=== PATIENT | male | born 1945 | race Caucasian/White ===

== ENCOUNTER → 2016-11-11 | Outpatient (CLI) | payer OTHER ==
[~2016-11-11] VITALS: Ht 154.9 cm; Wt 103.4 kg
[~2016-11-11] MED LIST: ACCUPRIL PO; ACCUPRIL40 MG PO; ACETAMINOPHEN325 M1 PO; ALLEGRA ALLERGY60 MG PO; AMBIEN 10 MG TA10 MG PO; APAP650 PO; ASA5UEC PO; ASPIRIN EC81 M1 PO; BENICAR HCT 401 EACH PO; BYSTOLIC 5 MG5 M1 PO; BYSTOLIC2.5 MG PO; CARDIZEM CD 18180 M3 PO; CARDIZEM CD180 MG PO; CARISOPRODOL 3350 M1 PO; CARISOPRODOL250 MG PO; CELEBREX 200 M200 M1 PO; COLACE CLEAR50 MG PO; COLACE100 MG PO; DELTA D3400 UNIT PO; EFFIENT10 MG PO; ETODOLAC 400 M400 M1 PO; FIBER LAX625 MG PO; FISH OIL 1,0001 EAC5 PO; FLOVENT HFA10.6 GM IH; GLUCOSAMINE1000 MG PO; LEVITRA5 MG PO; LIVALO1 MG PO; LIVALO4 MG PO; LUNESTA3 MG PO; NITROGLYCERIN12 GM TRANSLING; OMEPRAZOLE 20 M20 M1 PO; PLAVIX 75 MG TA75 MG PO; PRILOSEC 20 MG20 MG PO; QUINU10 PD; REPATHA SY140 MG/1 M SQ; SENNA LAXATIVE1 EACH PO; SOMA250 MG PO; TAZTIA XT180 MG PO; TIAZAC PO; TOPAMAX 25 MG T25 M1 PO; TOPAMAX 25 MG T25 MG PO; TRAMADOL 50 MG50 MG PO; TRAZODONE HCL50 MG PO; VITAMIN D1000 UNI1 PO; VITAMIN D400 UNI1 PO; VITAMIN E1000 UNI2 PO; XANAX 0.5 MG0.5 MG PO; ZANTAC 150MG T150 MG PO; ZYRTEC10 MG PO; [UNRECOGNIZED DRUG - REMARK] PO
--- NOTE | ~2016-11-11 | HPC ---
[facility] [address] [place] [address] PAIN MANAGEMENT CONSULTATION Name: WEST MOY Room #: [facility] [id number] Admission: 11/11/16 Attend Phys: Joaquin Lujan DO Discharge: Date of : 47 Report #: [id number] THIS REPORT FOR: //name// CC: Cory Lujan The patient is a 71-year-old gentleman seen in consultation at the request of Dr. Medrano for assistance with management of pain primarily low back, but it is constant in neck as well. The patient notes he has had pain, constant for many years. He sees Dr. Medrano for myofascial pain concerns and chronic axial pain. He tells me he has chronic neck pain that radiates into his shoulders, does not have pain radiating to the arms. While he states it is fairly constant, he tells me his biggest concern is what appears to be neurogenic claudication. States if he walks greater than 2 blocks he has a heavy numb feeling in his legs with increasing pain. States his hips feel like they are "on fire." He has cramping in his legs and feet at night. Has subjective weakness of the legs, paresthesia in the bilateral thighs. Fortunately, he denies bowel or bladder continence changes or saddle anesthesia. He notes pain again is exacerbated with standing, driving or sitting. Gets some relief with medication and stretching. He has had trigger point injections (SI joint?) injections with Dr. Medrano. He had seen chiropractors in the past with some efficacy, though has not seen a chiropractor since April. Describes continuous, burning, aching, throbbing pain, rates it anywhere from 4-5 on a VAS. REVIEW OF SYSTEMS: Complete review of systems was attached to chart and gone over with the patient. He is , quit smoking 10 years ago. Does not drink alcohol to excess. Significant heart disease, status post endovascular stents in 1995, 1999, 2007 and 2011. Did have coronary bypass graft surgery in 2007. Hypertension for which he takes quinapril, diltiazem and Bystolic. Gastroesophageal reflux for which he takes omeprazole. Dyslipidemia for which he uses Repatha. Chronic anxiety and depression for which he uses trazodone and Xanax. Takes Celebrex for axial and myofascial pain. He assures me that his bag checker is aware that he is on this agent. He does not use a blood thinner. He has been retired for 6 years. 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 Pain impact score averages 31/70. PHYSICAL EXAMINATION: VITAL SIGNS: Reveals 6 feet 1 inch, 228 pounds gentleman, BMI is 30.1 [place] [address] PAIN MANAGEMENT CONSULTATION Name: FARZANEHWEST MAHAD Room #: REG ANIBAL Marquez#: [id number] Admission: 11/11/16 Attend Phys: Joaquin Lujan DO Discharge: Date of : 47 Report #: [id number] per meter squared. Blood pressure 159/80, pulse is 52, respirations are 20. Room air oxygen saturation 98%. NEUROLOGIC: Cranial nerves 2-12 are grossly intact. HEENT: Pupils equal, reactive to light and accommodation. Extraocular muscles are intact. Thyroid is unremarkable. Cervical range of motion is modestly limited, he is tender in the cervical facets. Upper extremity strength is symmetric. Deep tendon reflexes are preserved. There are no cervical radicular symptoms noted. HEART: Sounds are distant, but regular, I do not detect a murmur. LUNG: Sounds similarly are distant, but clear. ABDOMEN: Endomorphic build with a moderate pannus. EXTREMITIES: Rises from chair using armrests, mildly antalgic gait, positive straight leg raise bilaterally, right greater than left. Diffuse tenderness across the low back. No discrete trigger points are noted. Pain seems to be centered about L5 area. Patellar reflex is diminished compared to the left. Achilles reflexes are symmetric. Slight decreased right plantar flexion and lower extremity extension strength. Skin integument is otherwise intact. Reviewed both cervical and lumbar MRI studies from 10/19/2016. Cervical spine notes degenerative disk and cervical spondylotic changes. There is some stenosis at C4-C5 with a disk bulging about 0.2 cm, flattening the anterior thecal sac without mass effect on the cervical cord, however. There is some cervical spondylosis noted. Again, none of this corresponds with cervical radicular symptoms, I think he does have a component of cervical spondylosis. MRI of the lumbar spine does show more degenerative findings, L3-L4 notes a 3 mm anterolisthesis, facet and ligamentous hypertrophy, all conspiring to narrow the canal to about 6 mm. There is bilateral foraminal stenosis noted. L4-L5 shows stenosis down to about 7-8 mm. There was a small focal disk protrusion at this level. There is left neural foraminal stenosis. L5-S1 notes 2 mm anterolisthesis with ligamentum flavum hypertrophy, again canal was narrowed to 7 mm with bilateral neural foraminal stenosis. ASSESSMENT: Symptomatic lumbar radiculopathy by clinical exam and history, component of cervical spondylosis which patient states is minor compared to his lumbar radicular symptoms. Chronic pain syndrome requiring complex medication management, significant coronary artery disease. RECOMMENDATION: I have discussed with the patient today about therapeutic options. We have elected to address the neurogenic claudication component first, we have elected to move forward with an epidural injection under fluoroscopy at L5-S1. Continue Celebrex, range of motion and activity. Follow up in 3-4 weeks to reevaluate. Consider repeat injection if indicated clinically. Thank you for allowing me to participate in the patient's care. I will keep you abreast of his progress. [address] [address] PAIN MANAGEMENT CONSULTATION Name: WEST MOY Room #: REG ANIBAL Marquez#: [id number] Admission: 11/11/16 Attend Phys: Joaquin Lujan DO Discharge: Date of : 47 Report #: [id number] PROCEDURE NOTE: Lumbar epidural injection under fluoroscopy. DESCRIPTION OF PROCEDURE: After both written and informed consent to include risk of spinal cord damage, increased pain, weakness and dural puncture, the patient was taken to the fluoroscopy suite, placed in the prone position. After sterile prep and drape, a skin wheal with lidocaine was raised. A 22-gauge epidural Tuohy needle was inserted in the midline at L5-S1 with good loss to resistance. Negative aspiration for cerebrospinal fluid or blood was noted. Then 1 mL of Omnipaque under biplanar fluoroscopy showed good spread within the epidural space. This was followed with 80 mg of triamcinolone plus 1 mL of 1.5% preservative-free Xylocaine, 0.5 mL Xylocaine was then injected to flush the needle; it was removed. The patient was monitored for an appropriate period of time and discharged in good and stable condition. <ELECTRONICALLY SIGNED> By: Joaquin Lujan DO 11/14/16 1427 1214 1414 Joaquin Lujan DO /nt
[2016-11-11 09:40] VITALS: BP 159/80
== END | disposition home or self-care (01) ==
LOC: PAIN 07:38
DX: M54.16 Radiculopathy, lumbar region (principal); G89.4 Chronic pain syndrome; M47.892 Other spondylosis, cervical region; I25.10 Atherosclerotic heart disease of native coronary artery without angina pectoris; F11.20 Opioid dependence, uncomplicated; I10 Essential (primary) hypertension; K21.9 Gastro-esophageal reflux disease without esophagitis; E78.5 Hyperlipidemia, unspecified; F41.8 Other specified anxiety disorders; F32.89 Other specified depressive episodes; Z95.1 Presence of aortocoronary bypass graft; Z88.8 Allergy status to other drugs, medicaments and biological substances; Z79.899 Other long term (current) drug therapy; Z79.82 Long term (current) use of aspirin; Z91.040 Latex allergy status; Z98.890 Other specified postprocedural states

== ENCOUNTER → 2016-12-22 | Outpatient (CLI) | payer OTHER ==
--- NOTE | ~2016-12-22 | HPC ---
[facility] [address] [place] [address] PAIN MANAGEMENT CONSULTATION Name: FARZANEHWESTNE Room #: REG CLClayton Murdock.#: [id number] Admission: 12/22/16 Attend Phys: Joaquin Lujan DO Discharge: Date of : 47 Report #: [id number] THIS REPORT FOR: //name// CC: Cory Lujan The patient is a 71-year-old gentleman, prior seen in the pain clinic in consultation on 11/11/2016. We recommended epidural injection at that time. He presents to pain clinic today for ongoing low back and left leg pain. Taking Celebrex daily, Tylenol as needed for breakthrough pain. He still has a markedly antalgic gait with a limited flexion to about 45 degrees. Still noting what sounds like neurogenic claudication symptoms with activity. He had a single lumbar epidural injection on , he notes that following the injection he has had about 50% overall improvement. His functional status has doubled, prior he states he could walk about two blocks before legs became quite "heavy." Now is he is able to walk about four blocks. ASSESSMENT: Symptomatic lumbar radiculopathy with neurogenic claudication component with approximately 60% overall improvement following single epidural injection. RECOMMENDATION: Repeat epidural injection under fluoroscopy today. Continue Celebrex, p.r.n. Tylenol. Follow up in 4 weeks for reevaluation. PROCEDURE: Lumbar epidural injection under fluoroscopy. PROCEDURE NOTE: After both written and informed consent to include risk of spinal cord damage, increased pain, weakness and dural puncture, the patient was taken to the fluoroscopy suite, placed in the prone position. After sterile prep and drape, a skin wheal with lidocaine was raised. A 22-gauge epidural Tuohy needle was inserted in the midline at L5-S1 with good loss to resistance. Negative aspiration for cerebrospinal fluid or blood was noted. Then 1 mL of Omnipaque under biplanar fluoroscopy showed good spread within the epidural space. This was followed with 80 mg of triamcinolone plus 1 mL of 1.5% preservative-free Xylocaine, 0.5 mL Xylocaine was then injected to flush the needle; it was removed. The patient was monitored for an appropriate period of time and discharged in good and stable condition. <ELECTRONICALLY SIGNED> By: Joaquin Lujan DO 12/23/16 0705 1213 1619 Joaquin Lujan DO /nt
== END | disposition home or self-care (01) ==
LOC: PAIN 07:00
DX: M54.16 Radiculopathy, lumbar region (principal); Z98.890 Other specified postprocedural states; Z88.0 Allergy status to penicillin; Z91.040 Latex allergy status; Z88.1 Allergy status to other antibiotic agents; Z88.6 Allergy status to analgesic agent; Z79.82 Long term (current) use of aspirin; Z88.8 Allergy status to other drugs, medicaments and biological substances; Z79.899 Other long term (current) drug therapy

== ENCOUNTER → 2017-01-27 | Outpatient (CLI) | payer OTHER ==
[~2017-01-27] VITALS: Ht 185.4 cm; Wt 97.1 kg
[~2017-01-27] MED LIST changes: +ALEVE220 MG PO
--- NOTE | ~2017-01-27 | HPC ---
[facility] [address] [address] PAIN MANAGEMENT CONSULTATION Name: FARZANEHWEST CLINTONNE Room #: REG [facility] [id number] Admission: 01/27/17 Attend Phys: Joaquin Lujan DO Discharge: Date of : 47 Report #: [id number] THIS REPORT FOR: //name// CC: Cory Lujan The patient is a 72-year-old gentleman, prior seen in the pain clinic on 12/22/2016. His component of neurogenic claudication with lumbar radicular pain exacerbated with standing, walking and bending. He has had 2 epidural injections, 11/11/2016 and 12/22/2016. Returns to pain clinic today. We had a prolonged visit today. Discussed therapeutic options with the patient. He notes he has significant neurogenic claudication, he can stand and walk maybe 5-10 minutes at a max before pain becomes quite disabling. He can sit and rest for 5-10 minutes and somewhat recess. He states his legs are reasonably strong, he can climb stairs, but pain is the primary rate-limiting factor. He has had some intermittent bowel and bladder continence changes. PHYSICAL EXAMINATION: Shows 72-year-old gentleman, BMI is 28.2 kilograms per meter squared. Alert and oriented to person, place, and time, judged to be a reasonable historian. Vital signs are generally stable. Markedly antalgic gait and recently he has been developing a little bit of ataxia. Lumbar flexion is limited to 70 degrees. He can stand on his toes and heels. Straight leg raise is grossly positive, left greater than right at 30 degrees. Patellar reflexes diminished on the left 0-1/4 without symmetric contraction, is 2/4 on the right. Achilles reflexes are 0-1/4 and symmetric. DIAGNOSTIC STUDIES: Include MRI of the lumbar spine from 10/19/2016 noting stenosis down about 6 mm at L3-L4, 7-8 mm at L4-L5, 7 mm at L5-S1 with grade 2 anterolisthesis at this level. The patient is not desirous of surgical intervention. We would like to continue to treat conservatively. We talked about therapeutic options. I would like for him to at least consult with the back surgeon to find out what his options are, though I too agree that probably surgery is not indicated at this point. I think he would benefit from a spinal cord stimulator to help mitigate neurogenic claudication symptoms. Today, we did discuss spinal cord stimulator at length. We also talked about surgery. We used a plastic model spine to discuss his specific anatomy. The patient was seen for approximately 20 minutes today in clinic before taken to the fluoroscopy suite. ASSESSMENT: Symptomatic lumbar radiculopathy secondary to spinal stenosis, history of neurogenic claudication, chronic pain syndrome. [address] [address] PAIN MANAGEMENT CONSULTATION Name: WEST MOY Room #: REG CLClayton Marquez#: [id number] Admission: 01/27/17 Attend Phys: Joaquin Lujan DO Discharge: Date of : 47 Report #: [id number] RECOMMENDATIONS: 1. The patient was given print and video literature regarding spinal cord stimulator (Nevro). 2. Referral to neurosurgery for consultation regarding more definitive intervention, Dr. Brennon Xiao or Dr. Lucio Ferrera. 3. Epidural injection under fluoroscopy today at L5-S1. PROCEDURE: Lumbar epidural injection under fluoroscopy. PROCEDURE NOTE: After both written and informed consent to include risk of spinal cord damage, increased pain, weakness and dural puncture, the patient was taken to the fluoroscopy suite, placed in the prone position. After sterile prep and drape, a skin wheal with lidocaine was raised. A 22-gauge epidural Tuohy needle was inserted in the midline at L5-S1 with good loss to resistance. Negative aspiration for cerebrospinal fluid or blood was noted. Then 1 mL of Omnipaque under biplanar fluoroscopy showed good spread within the epidural space. This was followed with 80 mg of triamcinolone plus 1 mL of 1.5% preservative-free Xylocaine, 0.5 mL Xylocaine was then injected to flush the needle; it was removed. The patient was monitored for an appropriate period of time and discharged in good and stable condition. <ELECTRONICALLY SIGNED> By: Joaquin Lujan DO 01/30/17 0742 1227 1933 Joaquin Lujan DO /nt
[2017-01-27 10:20] VITALS: BP 141/75
== END ==
LOC: PAIN 06:55
DX: M54.16 Radiculopathy, lumbar region (principal); G89.29 Other chronic pain; Z88.1 Allergy status to other antibiotic agents; Z88.8 Allergy status to other drugs, medicaments and biological substances

== ENCOUNTER → 2017-12-06 | Outpatient (CLI) | payer OTHER ==
[~2017-12-06] VITALS: Ht 185.4 cm; Wt 97.5 kg
[~2017-12-06] MED LIST changes: +MOBIC15 MG PO; +TYLENOL EXTRA500 MG PO; +ZYRTEC10 M5 PO
--- NOTE | ~2017-12-06 | HPC ---
[facility] [place] [address] PAIN MANAGEMENT CONSULTATION Name: WEST MOY Room #: REG [facility] Jimmy#: [id number] Admission: 12/06/17 Attend Phys: Enriqueta Tan MD Discharge: Date of : 47 Report #: [id number] THIS REPORT FOR: //name// CC: Cory Tan DATE OF SERVICE: 12/06/2017 CHIEF COMPLAINT: Pain in the low back area and down into the hips and wraps around into the groin and down into the legs. There is still numbness in the front of my thighs. FOLLOWUP HISTORY: The patient is a 72-year-old gentleman who has been followed in the pain clinic by Dr. Joaquin Lujan. The patient has a history of lumbar radicular pain. He has undergone epidural steroid injections in the past. He was found that these are quite helpful. At this juncture, he is experiencing pain, which he rates as a 5-6/10. He has a history of spinal stenosis and degenerative joint disease. He had surgery in April, who is having pain in the back of his legs. Continues to have some pain and discomfort in the right posterior hip area. Notes that the pain has worsened in the low back area in the area of his belt line. Feels that there is a popping sensation in the left hip. He has been walking with a limp. He notes that if he stands for a prolonged period of time he notes that his leg goes numb. The patient is limited in his ability to lean forward more than about 45 degrees for significant pain is noted. The patient had talked with Dr. Lujan regarding the possibility of using a spinal cord stimulator. He is returned today and would like to proceed with an epidural steroid injection. He is clean, greater than 50% improvement in the past when he has undergone injections. ALLERGIES: CODEINE, LATEX, PLAVIX, MYCIN AND TATINS. CURRENT MEDICATIONS: Aleve 220 mg q. 12 hours, Ada 60 mg, trazodone 50 mg at bedtime, omeprazole 20 mg b.i.d., Repatha 140 mg subcutaneous, Bystolic 5 mg, Colace 50 mg at bedtime 2 tablets, Accupril 40 mg, aspirin 325 mg, tramadol 50 mg q.4 hours p.r.n., alprazolam 0.5 mg for anxiety, Taztia XT 180 mg. PAST MEDICAL HISTORY: Bleeding tendencies, hypertension, joint disease/arthritis, stomach problems, colon problem, heart trouble and sleep apnea PAST SURGICAL HISTORY: Two stents in 2011, stents in 1995, stents in 1999, stents in 2007 and open heart surgery in 2007. 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 REVIEW OF SYSTEMS: Fatigue, weakness, wears glasses, ringing in the ears, [facility] [address] [place] [address] PAIN MANAGEMENT CONSULTATION Name: WEST MOY [facility] [id number] Admission: 12/06/17 Attend Phys: Enriqueta Tan MD Discharge: Date of : 47 Report #: [id number] chronic sinus problems, shortness of breath, heart trouble, chest pain, angina or palpitations, sleep apnea, abdominal pain, frequent urination, burning, painful urination, awakens to urinate rash, itching, varicose veins, recurrent headaches, numbness and tingling sensation, memory loss, nervousness, depression, insomnia, hot and cold intolerance and bleeding. LABORATORY DATA: MRI of the lumbar spine dated on 10/19/2016: 1. L3-L4 disk space narrowing and endplate changes seen. There is a 3 mm anterolisthesis of L3. Facet and ligamentum hypertrophy is present. There is a diffuse bulging annulus. The thecal sac measures 6 mm AP diameter. There is a mild bilateral foraminal stenosis. L4-L5 facet and ligamentum hypertrophy is seen. There is diffuse annular bulging. There is a small focal central disk protrusion. The thecal sac measures 7-8 mm AP, right neural foramen is patent. There is mild left foraminal stenosis. 2. L5-S1, there is a 2 mm anterolisthesis of L4-L5. Facet and ligamentum hypertrophy is seen. There is a small focal central disk protrusion. The thecal sac measures 7 mm AP. There is a mild bilateral foraminal stenosis. PAIN CLINIC ASSESSMENT: 1. History of osteoarthritis. The patient has some osteoarthritic changes in the number of places (all over). 2. Height 6 feet 1 inch, weight 215 pounds and BMI is 28.4. 3. Vital signs: Blood pressure 152/88, pulse 59, respiratory rate 16 and room air saturation 98%. 4. Pain intensity 5-6/10. 5. Fall risk. The patient has not fallen in the last 3 months. Does experience some dizziness. 6. Blood thinner. The patient is not on a blood thinning medication. 7. Hypertension. The patient is being treated for hypertension. 8. Opioid medications greater than 6 weeks. The patient is not receiving opioid medications. 9. Risk assessment tool. 10. Functional assessment tool. 11. Recreational drug use. The patient denies use of recreational drugs. 12. Tobacco: The patient is a former smoker. 13. Alcohol: The patient denies use of alcoholic beverages. PHYSICAL EXAMINATION: GENERAL: The patient is a well-developed, well-nourished white male. Appears his stated age. He is alert and oriented x 3. HEENT: Normocephalic, atraumatic. Extraocular muscles intact. Sclerae nonicteric. Mucous membranes are moist. NECK: Good range of motion. HEART: Regular rate. EXTREMITIES: Upper extremity muscle strength is judged to be 4+/5 for the major muscle groups. The patient without significant scoliosis, kyphosis or lordosis. [address] [address] PAIN MANAGEMENT CONSULTATION Name: WEST MOY Room #: REG [facility]#: [id number] Admission: 12/06/17 Attend Phys: Enriqueta Tan MD Discharge: Date of : 47 Report #: [id number] Has pain and discomfort in the lower portion of his back with pain is radiating down at the L4-L5 dermatomal distribution on the right. IMPRESSION: 1. Lumbar radiculopathy, low back area. L4-L5 distribution with history of left foraminal stenosis, 7-8 mm AP diameter. RECOMMENDATIONS: We discussed treatment options with the patient. Risks and benefits of the procedure were discussed. Possible complications of an injection were reviewed. They include but are not limited to infection, increased muscle soreness, headache, bleeding, worsening of pain, no improvement in pain. The patient elects to proceed. PROCEDURE NOTE: The patient was placed in the prone position. Fluoroscopy was used to identify the L4-L5 interspace. A left paracentral area was identified. A 17-gauge Tuohy with loss of resistance technique was used to gain access to the epidural space. There was no CSF, heme or paresthesia. Total of 80 mg Depo-Medrol, 40 mg triamcinolone and 2 mL of 0.25% bupivacaine was injected. The patient tolerated the procedure well. There were no complications. He remained in the pain clinic for an appropriate amount of time. He will follow up in the future as needed. We would like to thank you for letting us participate in his care. We hope he continues to improve. By: 1821 0305 Enriqueta Tan MD /nt
[2017-12-06 09:14] VITALS: BP 152/88
== END | disposition home or self-care (01) ==
LOC: PAIN 07:31
DX: M54.16 Radiculopathy, lumbar region (principal); M48.061 Spinal stenosis, lumbar region without neurogenic claudication; G89.29 Other chronic pain; I10 Essential (primary) hypertension; M19.90 Unspecified osteoarthritis, unspecified site; G47.33 Obstructive sleep apnea (adult) (pediatric); K92.9 Disease of digestive system, unspecified; Z87.891 Personal history of nicotine dependence; Z91.040 Latex allergy status; Z88.6 Allergy status to analgesic agent; Z88.8 Allergy status to other drugs, medicaments and biological substances; Z79.899 Other long term (current) drug therapy; Z79.82 Long term (current) use of aspirin; Z98.890 Other specified postprocedural states; Z95.5 Presence of coronary angioplasty implant and graft

== ENCOUNTER → 2019-06-06 | Outpatient (CLI) | payer OTHER ==
[~2019-06-06] MED LIST changes: +AUGMENTIN 875-1 EACH PO; +BYSTOLIC10 MG PO
== END ==
LOC: SJCVCIMAG 11:30
DX: I44.0 Atrioventricular block, first degree (principal); R94.31 Abnormal electrocardiogram [ECG] [EKG]; I25.10 Atherosclerotic heart disease of native coronary artery without angina pectoris; I10 Essential (primary) hypertension; E78.5 Hyperlipidemia, unspecified; I73.9 Peripheral vascular disease, unspecified; Z87.891 Personal history of nicotine dependence

== ENCOUNTER 2019-07-03 18:04 | Inpatient (IN) | payer OTHER ==
[~2019-07-03] VITALS: Ht 177.8 cm; Wt 102.5 kg
[~2019-07-03 18:04] MED LIST changes: -AUGMENTIN 875-1 EACH PO; -BYSTOLIC10 MG PO
[2019-07-03 18:14] VITALS: BP 180/70
[2019-07-03 18:37] LABS: ABSOLUTE NEUTROPHILS 7.7 thou/uL (1.4-8.2); BASOPHILS 0.5 % (0.0-2.0); EOSINOPHILS 0.4 % (0.0-3.0); HEMATOCRIT 45.8 % (42.0-52.0); HEMOGLOBIN 15.1 gm/dL (14.0-18.0); LYMPHOCYTES 7.5 % (24.0-44.0); MCH 28.8 pg (26.0-34.0); MCHC 32.9 g/dL (28.0-37.0); MCV 87.5 fL (80.0-100.0); MONOCYTES 7.7 % (1.0-8.0); PLATELET COUNT 180 thou/uL (150-400); POLYS 83.9 % (36.0-66.0); RBC 5.24 mil/uL (4.50-6.00); RDW 15.2 % (10.5-14.5); WBC 9.2 thou/uL (4.0-11.0)
[2019-07-03 18:45] LABS: ANION GAP 10 mmol/L (7-16); BUN 15 mg/dL (7-18); CALCIUM 9.7 mg/dL (8.5-10.1); CHLORIDE 101 mmol/L (98-107); CO2 26 mmol/L (21-32); CREATININE 1.1 mg/dL (0.7-1.3); GLUCOSE 122 mg/dL (74-106); POTASSIUM 3.7 mmol/L (3.5-5.1); SODIUM 137 mmol/L (136-145)
[2019-07-03 18:56] LABS: DIRECT BILIRUBIN 0.2 mg/dL (<0.1-0.2); LIPASE 96 U/L (73-393); SGOT 14 U/L (15-37); SGPT 13 U/L (30-65); TOTAL BILIRUBIN 1.2 mg/dL (<0.1-1.0); TOTAL PROTEIN 7.3 g/dL (6.4-8.2); TROPONIN-I <0.06 ng/mL (<0.06)
[2019-07-03] MEDS ORDERED: TRAZODONE HCL50 MG PO (19:43)
[2019-07-03 23:11] VITALS: BP 163/68
[2019-07-03 23:40] VITALS: BP 167/85
[2019-07-04 00:15] VITALS: BP 166/84
[2019-07-04] MEDS ORDERED: BYSTOLIC10 MG PO (00:40)
[2019-07-04 04:58] VITALS: BP 104/55
[2019-07-04 07:30] VITALS: BP 125/53; BP 159/75
--- NOTE | 2019-07-04 07:54 | EKG ---
[facility] [address] [address] [place] [address] ELECTROCARDIOGRAM REPORT Name: WEST MOY Room #: 207-P ADM IN M.R.#: [id number] Admission: 07/03/19 Attend Phys: Chino Thomas MD Discharge: Date of : 47 Report #: [id number] THIS REPORT FOR: cc: Cory Medrano MD, Mark S. MD Lundgren, Craig H. MD [facility] ~ THIS REPORT FOR: //name// [facility] ED Test Date: 2019-07-03 Test Time: 18:00:45 Pat Name: WEST MOY Department: Room: [facility] Gender: M Director Of Religious Life: [facility] : 1945 Requested By: Lalito Rivers Order Number: [id number] MD: John Trinidad Measurements Intervals [place] Rate: 57 P: -8 [place]: 230 QRS: 19 QRSD: 94 T: 114 QT: 598 QTc: 583 Interpretive Statements Sinus rhythm Prolonged [place] interval RSR' in V1 or V2, right VCD Nonspecific ST and T wave abnormality Prolonged QT interval Compared to ECG 04/24/2015 11:56:22 Nonspecific change in the ST and T wave segments Electronically Signed On 07-04-2019 7:53:39 CDT by John Trinidad [email or web address] <ELECTRONICALLY SIGNED> By: John Trinidad MD, FACC 07/04/19 0753 1800 1800 John Trinidad MD, FAC /EPI
--- NOTE | 2019-07-04 07:55 | EKG ---
[facility] [place] [address] [place] [address] ELECTROCARDIOGRAM REPORT Name: WEST MOY Room #: 207- ADM IN M.R.#: [id number] Admission: 07/03/19 Attend Phys: Chino Thomas MD Discharge: Date of : 47 Report #: [id number] THIS REPORT FOR: cc: Cory Medrano MD, Mark S. MD Lundgren, Craig H. MD [facility] ~ THIS REPORT FOR: //name// [facility] ED Test Date: 2019-07-03 Test Time: 18:55:19 Pat Name: WEST MOY Department: Room: [facility] Gender: M Rouge Presser: MASTER : 1945 Requested By: Lalito Rivers Order Number: [id number] MD: John Trinidad Measurements Intervals [place] Rate: 59 P: -4 [place]: 221 QRS: 13 QRSD: 98 T: 141 QT: 402 QTc: 399 Interpretive Statements Sinus bradycardia Prolonged [place] interval Nonspecific ST and T wave abnormality Compared to ECG 04/24/2015 11:56:22 No significant change was found Electronically Signed On 07-04-2019 7:54:35 CDT by John Trinidad [email or web address] <ELECTRONICALLY SIGNED> By: John Trinidad MD, FAC 07/04/19 0754 1855 1855 John Trinidad MD, [facility] /EPI
--- NOTE | 2019-07-04 10:08 | 2DMMODE ---
[facility] [place] [address] 2 D/M-MODE ECHOCARDIOGRAM Name: WEST MOY Room #: 207-P ADM IN M.R.#: [id number] Admission: 07/03/19 Attend Phys: Chino Thomas MD Discharge: Date of : 49 Report #: [id number] THIS REPORT FOR: cc: Cory Medrano MD, Mark S. MD Mancuso, Gerald M. MD [facility] ~ APPROVED REPORT Study performed: 07/04/2019 09:27:57 EXAM: Comprehensive 2D, Doppler, and color-flow Echocardiogram Patient Location: Echo lab Room #: 207 Status: routine BSA: 2.18 HR: 59 bpm BP: 104/55 mmHg Rhythm: NSR Other Information Study Quality: Good Indications Chest Pain Hx: CABG, stent, HTN. 2D Dimensions RVDd: 35.75 mm IVSd: 13.61 (7-11mm) LVOT Diam: 21.53 (18-24mm) LVDd: 49.58 mm PWd: 11.75 (7-11mm) Ascending Ao: 35.97 (22-36mm) LVDs: 33.54 (25-40mm) Aortic Root: 31.74 mm Volumes Left Atrial Volume (Systole) Single Plane 4CH: 89.50 mL Single Plane 2CH: 113.66 mL LA ESV Index: 50.00 mL/m2 Aortic Valve AoV Peak Ignacio.: 2.18 m/s AO Peak Gr.: 19.02 mmHg LVOT Max P.59 mmHg AO Mean Gr.: 9.35 mmHg AO V2 Mean: 1.44 m/s LVOT Max V: 1.70 m/s [facility] [address] [address] 2 D/M-MODE ECHOCARDIOGRAM Name: WEST MOY Room #: 207-P [facility].#: [id number] Admission: 07/03/19 Attend Phys: Marivel Zavala Discharge: Date of : 49 Report #: [id number] AO V2 VTI: 45.81 cm ALONDRA Vmax: 2.84 cm2 Mitral Valve E/A Ratio: 0.9 MV Decel. Time: 179.93 ms MV E Max Ignacio.: 0.99 m/s MV A Ignacio.: 1.13 m/s MV PHT: 52.18 ms IVRT: 69.20 ms Pulmonary Valve PV Peak Ignacio.: 1.47 m/s PV Peak Gr.: 8.70 mmHg Pulmonary Vein P Vein S: 0.88 m/s P Vein A: 0.27 m/s P Vein D: 0.96 m/s P Vein A Dur.: 189.2 msec P Vein S/D Ratio: 0.92 Tricuspid Valve TR Peak Ignacio.: 2.92 m/s RAP Estimate: 5.00 mmHg TR Peak Gr.: 34.09 mmHg PA Pressure: 39.00 mmHg Left Ventricle The left ventricle is normal size. There is normal LV segmental wall motion. Mild concentric left ventricular hypertrophy. Left ventricular systolic function is normal. LVEF is 65%. Mild diastolic dysfunction is present (impaired relaxation pattern). Right Ventricle The right ventricle is normal size. The right ventricular systolic function is normal. Atria Left atrium is moderately dilated. The right atrium size is normal. Aortic Valve The aortic valve is normal in structure. Mildly thickened leaflets. No aortic regurgitation is present. There is no aortic valvular stenosis. Mitral Valve The mitral valve is normal in structure. Mild mitral regurgitation. No evidence of mitral valve stenosis. [facility] [address] [place] [address] 2 D/M-MODE ECHOCARDIOGRAM Name: WEST MOY Room #: 207-P [facility] IN ..#: [id number] Admission: 07/03/19 Attend Phys: Marivel Zavala Discharge: Date of : 49 Report #: [id number] Tricuspid Valve The tricuspid valve is normal in structure. Mild tricuspid regurgitation. Estimated PAP is 40mmHg. Pulmonic Valve The pulmonary valve is normal in structure. Trace pulmonic regurgitation. Great Vessels The aortic root is normal in size. The ascending aorta is normal in size. IVC is normal in size and collapses >50% with inspiration. Pericardium There is no pericardial effusion. <Conclusion> The left ventricle is normal size. Mild concentric left ventricular hypertrophy. LVEF is 65%. Mild diastolic dysfunction is present (impaired relaxation pattern). The right ventricle is normal size. Left atrium is moderately dilated. The aortic valve is normal in structure. Mildly thickened leaflets. Mild mitral regurgitation. Mild tricuspid regurgitation. Estimated PAP is 40mmHg. The aortic root is normal in size. There is no pericardial effusion. <ELECTRONICALLY SIGNED> By: Александр Estes MD, FACC 07/04/19 1006 1006 1006 Александр Estes MD, FACC /INF
[2019-07-04 11:30] VITALS: BP 156/74
[2019-07-04 16:30] VITALS: BP 157/67
--- NOTE | 2019-07-04 22:12 | P ---
[facility] [place] [address] PROCEDURE REPORT Name: WEST MOY Room #: 207-P ADM IN M.R.#: [id number] Admission: 07/03/19 Attend Phys: Chino Thomas MD Discharge: Date of : 49 Report #: [id number] THIS REPORT FOR: cc: Cory Medrano MD, Mark S. MD Graessle, Donna M. DO ~ CC: Chino Medrano MD DATE OF SERVICE: 07/04/2019 PROCEDURE: Esophagogastroduodenoscopy with biopsies. He is a patient of Dr. Cory Medrano and Dr. Chino Thomas. INDICATION FOR PROCEDURE: The patient has had chest pain, nausea, and vomiting of undetermined etiology. This pain that he has had has radiated around into his back. He has epigastric tenderness and some right upper quadrant tenderness as well. His daughter had a cholecystectomy. Informed consent for this procedure was obtained prior to the administration of any medication. The risks of the procedure which include bleeding, perforation, infection, complications of sedation, and the possibility I could miss something have been explained to the patient and he has indicated his consent by signing. Anesthesia kindly provided deep sedation for this procedure. DESCRIPTION OF PROCEDURE: With the patient in the left lateral decubitus position, the Olympus upper videoscope was introduced through the upper esophageal sphincter and advanced under direct visualization to the third portion of the duodenum. Findings are noted on withdrawal of the scope. The duodenal mucosa appears normal throughout its entirety. Pylorus, normal mucosa. Antrum, erythematous mucosa. Biopsies were obtained times 2, once from the antrum and once from the body of the stomach and then times 2 from patches of gastritis in the proximal stomach. The body of the stomach contains patchy gastritis as does the cardia and fundus. Four biopsies total were obtained from the stomach. Good hemostasis was noted after all of those biopsies. The scope was then withdrawn into the esophagus and no hiatal hernia had been seen. The Z line is appropriately located at the top of the gastric folds and appears normal. The esophageal mucosa appears normal throughout its entirety. The scope was withdrawn. The patient went to the recovery area in stable condition. He tolerated the procedure well. [address] [address] PROCEDURE REPORT Name: WEST MOY Room #: 207-P [facility] IN M.R.#: [id number] Admission: 07/03/19 Attend Phys: Chino Thomas MD Discharge: Date of : 49 Report #: [id number] IMPRESSION: 1. Patchy gastritis, biopsy times 4. 2. Normal duodenum and esophagus. RECOMMENDATIONS: To increase his proton pump inhibitors to Protonix 40 mg p.o. b.i.d. Await the biopsy results. We will start him on a heart healthy diet. He will be n.p.o. after midnight for a gallbladder ultrasound in the morning. Thank you very much once again for allowing me to participate in his care. <ELECTRONICALLY SIGNED> By: Yamila Bradford DO 07/04/19 2212 1335 1403 Yamila Bradford DO /nt
[2019-07-05 04:45] VITALS: BP 146/75
[2019-07-05 08:02] VITALS: BP 177/73
[2019-07-05 11:44] VITALS: BP 141/68
[2019-07-05 15:17] LABS: URINE BILIRUBIN NEGATIVE (Negative); URINE BLOOD NEGATIVE (Negative); URINE CLARITY CLEAR; URINE COLOR YELLOW; URINE GLUCOSE-RANDOM* NEGATIVE (Negative); URINE KETONES TRACE (Negative); URINE LEUKOCYTES-REFLEX NEGATIVE (Negative); URINE NITRITE-REFLEX NEGATIVE (Negative); URINE PROTEIN (DIPSTICK) TRACE (Negative)
--- NOTE | 2019-07-05 16:07 | PATH ---
[facility] [address] [place] [address] PATHOLOGY RPT PROCEDURE Name: FARZANEHCALDERON CLINTONNE Room #: 207-P ADM IN M.R.#: [id number] Admission: 07/03/19 Date of : 49 Discharge: Report #: [id number] Path Case #: [id number] [facility] Accession Number: [id number] . 01 Material submitted: . stomach - RANDOM GASTRIC BIOPSY R/O H. PYLORI . 01 Clinical history: . Pre-op diagnosis: Abdominal pain; N/V; non-cardiac chest pain Post-op diagnosis: Gastritis R/O H. pylori . 02 Diagnosis: Gastric mucosa, random gastric, rule out H. pylori, endoscopic biopsy: - Mild reactive gastropathy. - Negative for intestinal metaplasia or atrophy. - Negative for Helicobacter pylori (properly controlled immunohistochemical stain performed. (IUV:pit 07/05/2019) QTP 07/05/2019 1318 Local . 02 Electronically signed: . Lis Irby MD, Pathologist NPI- [id number] . 01 Gross description: . The specimen is received in formalin, labeled "Calderon Carrington, random gastric biopsy to R/O H. pylori". Received are four segments of pale gold soft tissue ranging in size from 0.3 to 0.7 cm in maximum dimensions. The specimen is submitted entirely in cassette A1. (CAA; 07/04/2019) QAC/QAC 07/04/2019 1950 Local . 02 Pathologist provided ICD-10: K31.9 . 02 CPT . 437134, X56369 Specimen Comment: A courtesy copy of this report has been sent to [phone] Specimen Comment: Report sent to Performed at: [address] [id number] [facility] [address], [place] [id number] MD Bj Dukes MD Phone: [phone] Performed at: [address] [id number] [address] [address] PATHOLOGY RPT PROCEDURE Name: CALDERON CARRINGTON Room #: 207-P ADM IN M.R.#: [id number] Admission: 07/03/19 Date of : 49 Discharge: Report #: [id number] Path Case #: [id number] MD Lis Irby MD Phone: [phone]
[2019-07-05 18:59] VITALS: BP 155/71
[2019-07-06] VITALS (7 sets, daily range): BP systolic 115–180; BP diastolic 62–89
[2019-07-06 13:10] LABS: ABSOLUTE NEUTROPHILS 7.9 thou/uL (1.4-8.2); BASOPHILS 0.4 % (0.0-2.0); EOSINOPHILS 0.1 % (0.0-3.0); HEMATOCRIT 42.3 % (42.0-52.0); LYMPHOCYTES 2.7 % (24.0-44.0); MCHC 33.2 g/dL (28.0-37.0); MCV 87.4 fL (80.0-100.0); MONOCYTES 5.9 % (1.0-8.0); PLATELET COUNT 153 thou/uL (150-400); POLYS 90.9 % (36.0-66.0); RBC 4.84 mil/uL (4.50-6.00); RDW 15.2 % (10.5-14.5); WBC 8.7 thou/uL (4.0-11.0)
[2019-07-06 13:24] LABS: ALBUMIN 2.6 g/dL (3.4-5.0); CALCIUM 8.8 mg/dL (8.5-10.1); PHOSPHORUS 1.8 mg/dL (2.5-4.9); POTASSIUM 3.8 mmol/L (3.5-5.1); TOTAL BILIRUBIN 1.4 mg/dL (<0.1-1.0); TOTAL PROTEIN 6.3 g/dL (6.4-8.2)
[2019-07-07 04:02] LABS: BASOPHILS 0.1 % (0.0-2.0); HEMATOCRIT 40.8 % (42.0-52.0); HEMOGLOBIN 13.5 gm/dL (14.0-18.0); MCV 87.9 fL (80.0-100.0); MONOCYTES 6.5 % (1.0-8.0); PLATELET COUNT 167 thou/uL (150-400); POLYS 89.4 % (36.0-66.0); RBC 4.65 mil/uL (4.50-6.00); RDW 15.3 % (10.5-14.5); WBC 7.8 thou/uL (4.0-11.0)
[2019-07-07 04:22] LABS: ALBUMIN 2.4 g/dL (3.4-5.0); CALCIUM 8.1 mg/dL (8.5-10.1); CREATININE 0.9 mg/dL (0.7-1.3); MAGNESIUM 2.2 mg/dL (1.8-2.4); PHOSPHORUS 3.1 mg/dL (2.5-4.9)
[2019-07-07 04:45] VITALS: BP 136/78
[2019-07-07 07:45] VITALS: BP 133/67
[2019-07-07 17:00] VITALS: BP 143/74
[2019-07-07 20:00] VITALS: BP 155/64
[2019-07-08 04:57] LABS: ABSOLUTE NEUTROPHILS 5.2 thou/uL (1.4-8.2); BASOPHILS 0.2 % (0.0-2.0); EOSINOPHILS 0.1 % (0.0-3.0); HEMATOCRIT 36.3 % (42.0-52.0); HEMOGLOBIN 11.9 gm/dL (14.0-18.0); LYMPHOCYTES 9.6 % (24.0-44.0); MCH 28.9 pg (26.0-34.0); MCHC 32.8 g/dL (28.0-37.0); MONOCYTES 8.6 % (1.0-8.0); PLATELET COUNT 170 thou/uL (150-400); POLYS 81.5 % (36.0-66.0); RBC 4.13 mil/uL (4.50-6.00); RDW 15.5 % (10.5-14.5); WBC 6.4 thou/uL (4.0-11.0)
[2019-07-08 05:11] VITALS: BP 139/52
[2019-07-08 05:11] LABS: CALCIUM 8.5 mg/dL (8.5-10.1); MAGNESIUM 2.1 mg/dL (1.8-2.4); PHOSPHORUS 2.5 mg/dL (2.5-4.9); POTASSIUM 3.7 mmol/L (3.5-5.1); TOTAL BILIRUBIN 0.6 mg/dL (<0.1-1.0); TOTAL PROTEIN 5.4 g/dL (6.4-8.2)
[2019-07-08 08:00] VITALS: BP 140/60
[2019-07-08] MEDS ORDERED: TRAMADOL 50 MG50 MG PO (08:59)
[2019-07-08] MEDS ORDERED: AUGMENTIN 875-1 EACH PO (08:59)
[2019-07-08 14:06] VITALS: BP 140/60
--- NOTE | 2019-07-10 16:07 | PATH ---
[facility] [address] [place] [address] PATHOLOGY RPT PROCEDURE Name: CALDERON MOY Room #: 207-P [facility] IN M.R.#: [id number] Admission: 07/03/19 Date of : 49 Discharge: 07/08/19 Report #: [id number] Path Case #: [id number] [facility] Accession Number: [id number] . 01 Material submitted: . gallbladder - GALLBLADDER . 01 Clinical history: . Gangrenous cholecystitis . 02 Diagnosis: Gallbladder, cholecystectomy: - Marked acute cholecystitis associated with ulceration and gangrenous necrosis. (IUV/db; 07/10/2019) LBQ 07/10/2019 1258 Local . 02 Electronically signed: . Lis Irby MD, Pathologist NPI- [id number] . 01 Gross description: . The specimen is received in formalin, labeled "Calderon Charissa, gallbladder". Received is a previously opened gallbladder measuring 8.8 x 5.0 x 1.7 cm in greatest dimensions displaying a dusky rich-brown serosal surface. Opening the specimen reveals a light gold to light brown, shaggy mucosa with a gallbladder wall thickness of 0.1 cm. The gull bladder mucosa displays overlying possible exudate. Calculi are not present, and no masses or lesions are noted grossly. Movie Writer sections, to include the proximal margin, are submitted in cassette A1. (CAA; 07/09/2019) QAC/QA 07/09/2019 1523 Local . 02 Pathologist provided ICD-10: K81.1, K82.8 . 02 CPT . 210203 Specimen Comment: A courtesy copy of this report has been sent to [phone] Specimen Comment: Report sent to Performed at: [address] [id number] MD Bj Dukes MD Phone: [phone] Performed at: [address] [id number] [address] [address] PATHOLOGY RPT PROCEDURE Name: CALDERON MOY Room #: 207-P DIS IN M.R.#: [id number] Admission: 07/03/19 Date of : 49 Discharge: 07/08/19 Report #: [id number] Path Case #: [id number] MD Lis Irby MD Phone: [phone]
== END 2019-07-08 16:07 | disposition home or self-care (01) | DRG 356 ==
LOC: ER 18:04 → EROBS 22:16 → 2N 22:16
PROVIDERS: Emergency Medicine; Internal Medicine; ADMIT Hospitalist
PROC: 0DB68ZX Excision of Stomach, Via Natural or Artificial Opening Endoscopic, Diagnostic (ICD-10-PCS; principal; 2019-07-04)
PROC: 5A09357 Assistance with Respiratory Ventilation, Less than 24 Consecutive Hours, Continuous Positive Airway Pressure (ICD-10-PCS; principal; 2019-07-04)
PROC: 5A09357 Assistance with Respiratory Ventilation, Less than 24 Consecutive Hours, Continuous Positive Airway Pressure (ICD-10-PCS; 2019-07-05)
PROC: 0FT44ZZ Resection of Gallbladder, Percutaneous Endoscopic Approach (ICD-10-PCS; 2019-07-06)
PROC: BF13YZZ Fluoroscopy of Gallbladder and Bile Ducts using Other Contrast (ICD-10-PCS; 2019-07-06)
PROC: 5A09357 Assistance with Respiratory Ventilation, Less than 24 Consecutive Hours, Continuous Positive Airway Pressure (ICD-10-PCS; 2019-07-07)
PROC: 5A09357 Assistance with Respiratory Ventilation, Less than 24 Consecutive Hours, Continuous Positive Airway Pressure (ICD-10-PCS; 2019-07-08)
DX: K29.70 Gastritis, unspecified, without bleeding (principal); K75.0 Abscess of liver; K81.0 Acute cholecystitis; K21.9 Gastro-esophageal reflux disease without esophagitis; I48.0 Paroxysmal atrial fibrillation; G47.33 Obstructive sleep apnea (adult) (pediatric); G43.909 Migraine, unspecified, not intractable, without status migrainosus; I25.10 Atherosclerotic heart disease of native coronary artery without angina pectoris; I73.9 Peripheral vascular disease, unspecified; I71.4 Abdominal aortic aneurysm, without rupture; G47.00 Insomnia, unspecified; R29.6 Repeated falls; K81.1 Chronic cholecystitis; N28.9 Disorder of kidney and ureter, unspecified; Z95.5 Presence of coronary angioplasty implant and graft; Z88.8 Allergy status to other drugs, medicaments and biological substances; Z88.1 Allergy status to other antibiotic agents; Z91.040 Latex allergy status; Z87.891 Personal history of nicotine dependence; Z79.82 Long term (current) use of aspirin; Z79.899 Other long term (current) drug therapy; Z80.0 Family history of malignant neoplasm of digestive organs; Z95.1 Presence of aortocoronary bypass graft; Z86.010 Personal history of colon polyps
CPT/HCPCS: 10081; 50010; 50101; 50249; 50331; 50411; 50445; 50555; 50558; 50900; 51489; 52266; 52287; 53307; 53310; 53312; 54022; 54118; 56462; 56525; 56526; 62110; 62900; 70005

== ENCOUNTER → 2019-08-19 | Outpatient (CLI) | payer OTHER ==
[~2019-08-19] MED LIST changes: +AUGMENTIN 875-1 EACH PO; +BYSTOLIC10 MG PO
== END ==
LOC: SJCVCIMAG 07:51
DX: I72.3 Aneurysm of iliac artery (principal); I44.0 Atrioventricular block, first degree; R94.31 Abnormal electrocardiogram [ECG] [EKG]; I25.10 Atherosclerotic heart disease of native coronary artery without angina pectoris; I10 Essential (primary) hypertension; E78.00 Pure hypercholesterolemia, unspecified; R00.1 Bradycardia, unspecified; I48.0 Paroxysmal atrial fibrillation; Z79.82 Long term (current) use of aspirin; Z79.899 Other long term (current) drug therapy; Z87.891 Personal history of nicotine dependence

== ENCOUNTER → 2020-01-15 | Outpatient (CLI) | payer OTHER | LOC: SJCVCIMAG 08:39 | PROVIDERS: ATTEND Internal Medicine Cardiovascular Disease | DX: I71.4 Abdominal aortic aneurysm, without rupture (principal); R94.31 Abnormal electrocardiogram [ECG] [EKG]; R00.1 Bradycardia, unspecified; I25.10 Atherosclerotic heart disease of native coronary artery without angina pectoris; I10 Essential (primary) hypertension; E78.00 Pure hypercholesterolemia, unspecified; I73.9 Peripheral vascular disease, unspecified; I48.0 Paroxysmal atrial fibrillation; I77.1 Stricture of artery; Z78.9 Other specified health status; Z95.1 Presence of aortocoronary bypass graft; Z87.891 Personal history of nicotine dependence ==

== ENCOUNTER → 2020-02-03 | Outpatient (CLI) | payer OTHER ==
[~2020-02-03] VITALS: Ht 185.4 cm; Wt 100.1 kg
[~2020-02-03] MED LIST changes: +NEURONTIN300 MG PO
[2020-02-03 13:37] VITALS: BP 153/76
--- NOTE | 2020-02-03 14:04 | NUR ---
Pain Clinic Assessment: 1. History of Osteoarthritis: SPINE History of Rheumatoid Arthritis: DENIES 2. Height: 6 ft. 1 in. 185.4 cm. Weight: 220.6 lb. oz. 100.064 kg. Patient's BMI: 29.1 3. Vital Signs: BP: 153/76 Pulse: 49 Resp: 16 Temp: 02 Sat: 98 ECG Mon: 4. Pain Intensity: 4-5 5. Fall Risk: Dizziness: Y Needs help standing or walking: N Fallen in the last 3 months: N Fall risk comments: 6. Patient on Blood Thinner: None 7. History of Hypertension: Y 8. Opioid Therapy greater than 6 weeks: N Opiate Contract Signed: 9. Risk Assessment Tool Provided: 10. Functional Assessment Tool: 11. Recreational Drug Use: Never Drug Type: Tobacco Use: Former Smoker Tobacco Type: Amount or Packs/day: How Many Years: Alcohol Use: No Frequency: Quant:
--- NOTE | 2020-02-17 09:11 | HPC ---
[facility] [address] [place] [address] PAIN MANAGEMENT CONSULTATION Name: WEST MOY Room #: REG [facility].#: [id number] Admission: 02/03/20 Attend Phys: Kenji Juarez MD Discharge: Date of : 49 Report #: [id number] CC: Александр Estes MD Cory Mitchell Juarez DATE OF SERVICE: 02/03/2020 CHIEF COMPLAINT: Back pain with radiation. HISTORY OF PRESENT ILLNESS: The patient is a pleasant 75-year-old who Dr. Estes was asked to see in consultation. He has a longstanding history of back pain and a remarkable history of cardiac disease, which has been managed masterfully by Dr. Estes. He has had 5 separate bypasses and reports that he has had 12 stents. He is doing well at this time from a cardiac standpoint and sees Dr. Estes on a regular basis. It is his back pain that is giving him trouble. He has pain of a 4-5/10 that he describes as a deep aching sensation in his back and it radiates into his legs. He had surgery in 2019 and I have a plain film x-ray following that surgery, but nothing since. He cannot remember who performed the surgery, although the x-rays were ordered by Dr. Tacho Viramontes at . He had a surgery at [facility], which narrows at either Dr. Saha or perhaps Dr. Rubio. Neither name, seems to ring a wright to him. He was better after surgery for a short time, but then the pain began to return. He was sent to see Dr. Whitten, who gave him 2 epidurals and then said there was nothing further that he could do. Since then, he has been taking 2 Tylenol in the morning with the Celebrex and 2 Tylenol at bedtime. He also takes gabapentin 300 mg at bedtime, but cannot take it during the day due to dizziness and it affects him. He has tried hydrocodone and tramadol, but has a very sensitive GI system and has lots of constipation issue, so he has not taken stronger pain medicines. Pain today is worse on the left than the right and this seems to be consistent. The x-rays I reviewed are plain films, again the data does show that he had an anterolisthesis of L3 on L4 and a subtle anterolisthesis of L4 on L5. Facet changes are noted throughout the lower lumbar spine consistent with age. MEDICATIONS: Gabapentin 300 mg at bedtime, Tylenol Extra Strength 2 in the morning, 1 at bedtime; ___ 10 mg daily, trazodone 50 mg at bedtime, omeprazole, docusate, quinapril, aspirin, diltiazem. He also uses sildenafil and remains sexually active. ADDITIONAL SOCIAL HISTORY: Negative for tobacco, although he used to smoke in the past. It has been often a decade or more, he does not use alcohol. He is retired. PHYSICAL EXAMINATION: GENERAL: Pleasant gentleman, 6 feet 1 inch. BMI is 21.9. VITAL SIGNS: Blood pressure 153/76, heart rate 49 on the beta winnie. Pain intensity 4-5. He moves independently from sitting to standing position, but his gait is antalgic. CHEST: Clear. CARDIAC: Rhythm is very slow. I could not hear a murmur. MUSCULOSKELETAL: Straight leg raising bilaterally is positive, reproducing some pain radiating into the legs down the L5-S1 distribution. Sensation is intact. Generalized weakness is noted in the lower extremities. IMPRESSION: This gentleman probably has age-related spinal stenosis. He has been treated in the past with epidural injections due to neurogenic claudication symptoms. I think it is reasonable to repeat those injections again. I reviewed farther back and I see that he has had injections by Dr. Joaquin Lujan in 2017. They were performed at L5-S1 and he has no recollection of success or failure. I think that we could inject him there, perhaps higher. It will depend upon his surgical scar. We will provide medicine into the epidural space. He is anxious to go forward. In order to provide best relief, I think an MRI scan at this point following surgery would be of interest. I have ordered an MRI without contrast and we will review that before I give him his injection. <ELECTRONICALLY SIGNED> By: Kenji Juarez MD 02/17/20 0911 1554 1821 Kenji Juarez MD /nt
== END ==
LOC: PAIN 07:11
PROVIDERS: ATTEND Anesthesiology Pain Medicine
DX: M54.9 Dorsalgia, unspecified (principal); Z79.899 Other long term (current) drug therapy; Z79.891 Long term (current) use of opiate analgesic; Z79.82 Long term (current) use of aspirin

== ENCOUNTER → 2020-02-12 | Outpatient (CLI) | payer OTHER | LOC: MRI 10:28 | PROVIDERS: ATTEND Anesthesiology Pain Medicine | DX: M47.26 Other spondylosis with radiculopathy, lumbar region (principal); M48.061 Spinal stenosis, lumbar region without neurogenic claudication; K45.8 Other specified abdominal hernia without obstruction or gangrene ==

== ENCOUNTER → 2020-02-17 | Outpatient (CLI) | payer OTHER ==
[~2020-02-17] VITALS: Ht 185.4 cm; Wt 99.6 kg
[2020-02-17 13:24] VITALS: BP 129/67
--- NOTE | 2020-02-17 13:40 | NUR ---
Pain Clinic Assessment: 1. History of Osteoarthritis: SPINE History of Rheumatoid Arthritis: DENIES 2. Height: 6 ft. 1 in. 185.4 cm. Weight: 219.6 lb. oz. 99.610 kg. Patient's BMI: 29.0 3. Vital Signs: BP: 129/67 Pulse: 50 Resp: 14 Temp: 02 Sat: 97 ECG Mon: 4. Pain Intensity: 4-5 5. Fall Risk: Dizziness: N Needs help standing or walking: N Fallen in the last 3 months: N Fall risk comments: 6. Patient on Blood Thinner: None 7. History of Hypertension: Y 8. Opioid Therapy greater than 6 weeks: N Opiate Contract Signed: 9. Risk Assessment Tool Provided: 4-MODERATE RISK 10. Functional Assessment Tool: 50/70 11. Recreational Drug Use: Never Drug Type: Tobacco Use: Former Smoker Tobacco Type: Amount or Packs/day: How Many Years: Alcohol Use: No Frequency: Quant:
== END | disposition home or self-care (01) ==
LOC: PAIN 07:06
PROVIDERS: ATTEND Anesthesiology Pain Medicine
DX: M48.062 Spinal stenosis, lumbar region with neurogenic claudication (principal); G89.29 Other chronic pain; Z98.890 Other specified postprocedural states; Z79.899 Other long term (current) drug therapy; Z87.891 Personal history of nicotine dependence; Z91.040 Latex allergy status; Z88.8 Allergy status to other drugs, medicaments and biological substances

== ENCOUNTER → 2020-03-11 | Outpatient (CLI) | payer OTHER | LOC: SJCVC 08:46 | PROVIDERS: ATTEND Internal Medicine Cardiovascular Disease | DX: R94.31 Abnormal electrocardiogram [ECG] [EKG] (principal); I25.10 Atherosclerotic heart disease of native coronary artery without angina pectoris; I73.9 Peripheral vascular disease, unspecified; I72.3 Aneurysm of iliac artery; E78.00 Pure hypercholesterolemia, unspecified; I10 Essential (primary) hypertension; I71.4 Abdominal aortic aneurysm, without rupture; R00.1 Bradycardia, unspecified ==

== ENCOUNTER → 2020-04-13 | Outpatient (CLI) | payer OTHER ==
[~2020-04-13] VITALS: Ht 185.4 cm; Wt 100.0 kg
[2020-04-13 09:16] VITALS: BP 132/72
--- NOTE | 2020-04-13 09:27 | NUR ---
Pain Clinic Assessment: 1. History of Osteoarthritis: SPINE History of Rheumatoid Arthritis: DENIES 2. Height: 6 ft. 1 in. 185.4 cm. Weight: 220.4 lb. oz. 99.973 kg. Patient's BMI: 29.1 3. Vital Signs: BP: 132/72 Pulse: 50 Resp: 18 Temp: 02 Sat: 98 ECG Mon: 4. Pain Intensity: 6-7 5. Fall Risk: Dizziness: N Needs help standing or walking: N Fallen in the last 3 months: N Fall risk comments: 6. Patient on Blood Thinner: None 7. History of Hypertension: Y 8. Opioid Therapy greater than 6 weeks: N Opiate Contract Signed: 9. Risk Assessment Tool Provided: 4-MODERATE RISK 10. Functional Assessment Tool: 50/70 11. Recreational Drug Use: Never Drug Type: Tobacco Use: Former Smoker Tobacco Type: Amount or Packs/day: How Many Years: Alcohol Use: No Frequency: Quant:
== END | disposition home or self-care (01) ==
LOC: PAIN 06:52
PROVIDERS: ATTEND Anesthesiology Pain Medicine
DX: M54.16 Radiculopathy, lumbar region (principal); M96.1 Postlaminectomy syndrome, not elsewhere classified; G89.29 Other chronic pain; M47.896 Other spondylosis, lumbar region; Z98.890 Other specified postprocedural states; Z79.899 Other long term (current) drug therapy; Z87.891 Personal history of nicotine dependence; Z91.040 Latex allergy status; Z88.8 Allergy status to other drugs, medicaments and biological substances

== ENCOUNTER → 2020-05-14 | Outpatient (CLI) | payer OTHER ==
[~2020-05-14] VITALS: Ht 185.4 cm; Wt 99.9 kg
[~2020-05-14] MED LIST changes: +XANAX 0.5 MG0.5 M1 PO
[2020-05-14 13:54] VITALS: BP 128/71
--- NOTE | 2020-05-14 14:05 | NUR ---
Pain Clinic Assessment: 1. History of Osteoarthritis: SPINE History of Rheumatoid Arthritis: DENIES 2. Height: 6 ft. 1 in. 185.4 cm. Weight: 220.2 lb. oz. 99.882 kg. Patient's BMI: 29.1 3. Vital Signs: BP: 128/71 Pulse: 57 Resp: 14 Temp: 02 Sat: 97 ECG Mon: 4. Pain Intensity: 5 5. Fall Risk: Dizziness: N Needs help standing or walking: N Fallen in the last 3 months: N Fall risk comments: 6. Patient on Blood Thinner: None 7. History of Hypertension: Y 8. Opioid Therapy greater than 6 weeks: N Opiate Contract Signed: 9. Risk Assessment Tool Provided: 4-MODERATE RISK 10. Functional Assessment Tool: 50/70 11. Recreational Drug Use: Never Drug Type: Tobacco Use: Former Smoker Tobacco Type: Amount or Packs/day: How Many Years: Alcohol Use: No Frequency: Quant:
== END ==
LOC: PAIN 07:05
PROVIDERS: ATTEND Anesthesiology Pain Medicine
DX: M54.16 Radiculopathy, lumbar region (principal); G89.29 Other chronic pain; M96.1 Postlaminectomy syndrome, not elsewhere classified

== ENCOUNTER → 2020-05-21 | Outpatient (CLI) | payer OTHER | LOC: SJCVCIMAG 05-20 16:07 | PROVIDERS: ATTEND Internal Medicine Cardiovascular Disease | DX: I25.118 Atherosclerotic heart disease of native coronary artery with other forms of angina pectoris (principal); I49.3 Ventricular premature depolarization; I44.0 Atrioventricular block, first degree; R94.31 Abnormal electrocardiogram [ECG] [EKG]; E78.00 Pure hypercholesterolemia, unspecified; I73.9 Peripheral vascular disease, unspecified; I72.3 Aneurysm of iliac artery; I10 Essential (primary) hypertension; I71.4 Abdominal aortic aneurysm, without rupture; I48.91 Unspecified atrial fibrillation; G47.33 Obstructive sleep apnea (adult) (pediatric); Z95.1 Presence of aortocoronary bypass graft; Z78.9 Other specified health status; Z98.890 Other specified postprocedural states; Z79.82 Long term (current) use of aspirin; Z79.899 Other long term (current) drug therapy; Z87.891 Personal history of nicotine dependence ==

== ENCOUNTER → 2020-10-22 | Outpatient (CLI) | payer OTHER ==
[~2020-10-22] VITALS: Ht 180.3 cm; Wt 101.1 kg
[~2020-10-22] MED LIST changes: +NEXIUM20 MG PO; +NORVASC5 MG PO
[2020-10-22 09:27] VITALS: BP 135/59
--- NOTE | 2020-10-22 09:34 | NUR ---
Pain Clinic Assessment: 1. History of Osteoarthritis: SPINE History of Rheumatoid Arthritis: DENIES 2. Height: 5 ft. 11 in. 180.3 cm. Weight: 222.8 lb. oz. 101.062 kg. Patient's BMI: 31.1 3. Vital Signs: BP: 135/59 Pulse: 54 Resp: 16 Temp: 02 Sat: 96 ECG Mon: 4. Pain Intensity: 4 5. Fall Risk: Dizziness: Y Needs help standing or walking: N Fallen in the last 3 months: N Fall risk comments: 6. Patient on Blood Thinner: None 7. History of Hypertension: Y 8. Opioid Therapy greater than 6 weeks: N Opiate Contract Signed: 9. Risk Assessment Tool Provided: 4-MODERATE RISK 10. Functional Assessment Tool: 50/70 11. Recreational Drug Use: Never Drug Type: Tobacco Use: Former Smoker Tobacco Type: Amount or Packs/day: How Many Years: Alcohol Use: No Frequency: Quant:
== END ==
LOC: PAIN 10-05 14:17
PROVIDERS: ATTEND Anesthesiology Pain Medicine
DX: M96.1 Postlaminectomy syndrome, not elsewhere classified (principal); M48.062 Spinal stenosis, lumbar region with neurogenic claudication; M51.26 Other intervertebral disc displacement, lumbar region; I10 Essential (primary) hypertension; Z68.31 Body mass index [BMI] 31.0-31.9, adult; Z88.5 Allergy status to narcotic agent; Z88.8 Allergy status to other drugs, medicaments and biological substances; Z79.891 Long term (current) use of opiate analgesic; Z79.899 Other long term (current) drug therapy; Z87.891 Personal history of nicotine dependence

== ENCOUNTER → 2020-11-19 | Outpatient (CLI) | payer OTHER | LOC: SJCVC 14:08 | PROVIDERS: ATTEND Internal Medicine Cardiovascular Disease | DX: R94.31 Abnormal electrocardiogram [ECG] [EKG] (principal); I71.4 Abdominal aortic aneurysm, without rupture; I25.118 Atherosclerotic heart disease of native coronary artery with other forms of angina pectoris; I10 Essential (primary) hypertension; E78.00 Pure hypercholesterolemia, unspecified; I73.9 Peripheral vascular disease, unspecified; I72.3 Aneurysm of iliac artery; R00.1 Bradycardia, unspecified; G47.33 Obstructive sleep apnea (adult) (pediatric); M19.90 Unspecified osteoarthritis, unspecified site; Z78.9 Other specified health status; Z95.1 Presence of aortocoronary bypass graft; Z95.828 Presence of other vascular implants and grafts; Z98.890 Other specified postprocedural states; Z88.2 Allergy status to sulfonamides; Z88.8 Allergy status to other drugs, medicaments and biological substances; Z79.82 Long term (current) use of aspirin; Z79.899 Other long term (current) drug therapy; Z87.891 Personal history of nicotine dependence ==

== ENCOUNTER → 2021-05-21 | Outpatient (CLI) | payer OTHER | LOC: SJCVCIMAG 07:04 | PROVIDERS: ATTEND Internal Medicine Cardiovascular Disease | DX: R94.01 Abnormal electroencephalogram [EEG] (principal); R00.1 Bradycardia, unspecified; I71.4 Abdominal aortic aneurysm, without rupture; I42.9 Cardiomyopathy, unspecified; R93.1 Abnormal findings on diagnostic imaging of heart and coronary circulation; E78.00 Pure hypercholesterolemia, unspecified; I47.2 Ventricular tachycardia; Z95.810 Presence of automatic (implantable) cardiac defibrillator; I25.10 Atherosclerotic heart disease of native coronary artery without angina pectoris; Z78.9 Other specified health status; I72.3 Aneurysm of iliac artery; I48.91 Unspecified atrial fibrillation; I73.9 Peripheral vascular disease, unspecified; I10 Essential (primary) hypertension; G47.33 Obstructive sleep apnea (adult) (pediatric); E78.1 Pure hyperglyceridemia; Z79.82 Long term (current) use of aspirin; Z79.899 Other long term (current) drug therapy; F17.210 Nicotine dependence, cigarettes, uncomplicated; Z72.89 Other problems related to lifestyle; Z88.8 Allergy status to other drugs, medicaments and biological substances; I44.0 Atrioventricular block, first degree ==

== ENCOUNTER → 2021-05-24 | Outpatient (CLI) | payer OTHER | LOC: SJCVCIMAG 11:25 | PROVIDERS: ATTEND Internal Medicine Cardiovascular Disease | DX: I44.0 Atrioventricular block, first degree (principal); I70.291 Other atherosclerosis of native arteries of extremities, right leg; I25.10 Atherosclerotic heart disease of native coronary artery without angina pectoris; R00.1 Bradycardia, unspecified; I48.91 Unspecified atrial fibrillation; R07.9 Chest pain, unspecified ==

== ENCOUNTER → 2021-05-26 | Outpatient (CLI) | payer OTHER ==
[~2021-05-26] VITALS: Ht 180.3 cm; Wt 98.5 kg
[2021-05-26 10:10] VITALS: BP 140/64
--- NOTE | 2021-05-26 10:21 | NUR ---
Pain Clinic Assessment: 1. History of Osteoarthritis: SPINE History of Rheumatoid Arthritis: DENIES 2. Height: 5 ft. 11 in. 180.3 cm. Weight: 217.2 lb. oz. 98.521 kg. Patient's BMI: 30.3 3. Vital Signs: BP: 140/64 Pulse: 51 Resp: 16 Temp: 02 Sat: 98 ECG Mon: 4. Pain Intensity: 6 5. Fall Risk: Dizziness: N Needs help standing or walking: N Fallen in the last 3 months: N Fall risk comments: 6. Patient on Blood Thinner: None 7. History of Hypertension: Y 8. Opioid Therapy greater than 6 weeks: N Opiate Contract Signed: 9. Risk Assessment Tool Provided: 4-MODERATE RISK 10. Functional Assessment Tool: 50/70 11. Recreational Drug Use: Never Drug Type: Tobacco Use: Former Smoker Tobacco Type: Amount or Packs/day: How Many Years: Alcohol Use: No Frequency: Quant:
--- NOTE | 2021-06-01 14:30 | HPC ---
[facility] [place] [address] PAIN MANAGEMENT CONSULTATION Name: [facility] Room #: REG ANIBAL OrtaThomasGonsaloThomas#: [id number] Admission: 05/26/21 Attend Phys: Nabeel Lujan DO Discharge: Date of : 49 Report #: [id number] THIS REPORT FOR: cc: Cory Medrano MD, Mark S. MD Johnson, James E. DO ~ cc: Александр Estes MD DATE OF SERVICE: 05/26/2021 REFERRING PHYSICIAN: Александр Estes MD CHIEF COMPLAINT: Low back pain and bilateral lower extremity pain with paresthesias. HISTORY OF PRESENT ILLNESS: As you know, the patient is a very pleasant 76-year-old male who has returned today in followup visit to discuss a spinal cord stimulator technology. The patient has been treated by Dr. Kenji Juarez for a period of time for lumbar radiculopathy. He has undergone transforaminal epidural injections, standard lumbar epidural injections over the past 3 years with benefit. Unfortunately, his symptoms have progressed. He returns today in followup visit to discuss spinal cord stimulator technology as he is failing from a traditional standpoint for treatment. As you are aware, the patient has severe central canal stenosis at multiple levels the source of his symptoms. He has not had anyone to review his MRI dated 02/12/2020. He returns to discuss that finding and treatment options to address lumbar radiculopathy. PAST MEDICAL HISTORY: Hypertension, anxiety disorder, gastroesophageal reflux disease, chronic low back pain, osteoarthritis. ALLERGIES: AZITHROMYCIN, CARVEDILOL, CLARITHROMYCIN, PLAVIX, ERYTHROMYCIN, GLUTEN, LATEX, EFFIENT, DULOXETINE, STATIN MEDICATIONS, CODEINE, ONDANSETRON, PROPRANOLOL, AND HYDROCODONE. SOCIAL HISTORY: The patient is a reformed smoker. He denies IV or illicit drug use. Denies any chronic alcohol use. He is accompanied by his , present in room today. IMAGING: MRI lumbar spine obtained on 02/12/2020 shows L1-L2 unremarkable. L2-L3 shows broad-based posterior disk bulge, bilateral facet hypertrophy and ligamentum flavum hypertrophy resulting in severe central canal stenosis, mild to moderate bilateral neural foraminal narrowing. L3-L4 shows laminectomies, bilateral facet arthropathy, small posterior disk bulge, no significant central canal or neural foraminal stenosis. L4-L5 shows right paracentral disk herniation effacing the right __ laminectomies, herniated disk is noted with fragment demonstrating mass effect upon the traversing right L5 nerve root. L5-S1 shows severe disk bulge, bilateral facet arthropathy, ligament flavum [address] [address] PAIN MANAGEMENT CONSULTATION Name: [facility] Room #: REG ANIBAL Marquez#: [id number] Admission: 05/26/21 Attend Phys: Nabeel Lujan DO Discharge: Date of : 49 Report #: [id number] hypertrophy resulting in moderate central canal stenosis. PQRS: The patient has known arthritic changes of the lumbar spine, bilateral hips and knees. No rheumatoid arthritis. He is placing current pain score 6/10. He is not a fall risk, has not had a fall in last 3 months. He is not on blood thinners, but is treated for hypertension. He is on chronic opioids and has a moderate to high risk of opioid addiction based on assessment tool. Pain impact is 50/70, severe interference of daily activities secondary to pain. PHYSICAL EXAMINATION: VITAL SIGNS: Blood pressure 140/64, pulse is 51, respiratory rate 16 and unlabored. The patient 98% on room air. Height 5 feet 11 inches tall, weight 217.2 pounds, BMI calculated 30.3. GENERAL: Well-developed, well-nourished, well-hydrated 76-year-old male. He appears stated age, no acute distress. Awake, alert and oriented x 3. Current pain score is rated 6/10. HEENT: Normocephalic, atraumatic. Pupils equal, round and responsive. He is wearing a mask in compliance with COVID-19 regulations. EXTREMITIES: Show no clubbing, no cyanosis and no edema. MUSCULOSKELETAL: Lower extremity strength equal and symmetrical 5/5. Muscle bulk and tone is equal and symmetrical in comparing lower extremities. Seated straight leg raising negative. Supine straight leg raising negative. Moriah's test is negative. Modified Gaenslen's positive for axial back pain. Ankle clonus negative. Babinski is negative. Deep tendon reflexes are symmetrical 1+/4 at patella and Achilles. ASSESSMENT: 1. Symptomatic lumbar radiculopathy. 2. Severe central canal stenosis of lumbar spine. 3. Severe facet arthropathy of lumbar spine. 4. 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 5. Facet arthropathy of lumbar spine. 6. Lumbosacral spondylosis with radiculopathy. 7. Chronic intractable pain. PLAN: 1. The patient returns today in followup visit to my clinic to discuss the possibility of looking towards a spinal cord stimulator as a treatment approach. We spent over 25 minutes of time with the patient today reviewing the MRI describing the findings therein and how they correlate to his current symptoms. After a very long discussion with this patient, we discussed treatment options we have available to address lumbar radicular symptoms secondary to central canal stenosis. Following was discussed with the patient today. We discussed physical therapy, stretching exercises and core strengthening as a treatment approach. We discussed medication suggestions utilizing neuropathic [facility] [address] [place] [address] PAIN MANAGEMENT CONSULTATION Name: [facility] Room #: REG [facility] Jimmy#: [id number] Admission: 05/26/21 Attend Phys: Nabeel Lujan DO Discharge: Date of : 49 Report #: [id number] medications such as amitriptyline, nortriptyline, Cymbalta, Lyrica or gabapentin in conjunction with his current medication management. We discussed lumbar epidural injections under fluoroscopic guidance, which unfortunately have begun to lose efficacy over the past couple of injections. We discussed spinal cord stimulator therapy, but advised the patient that this is a temporizing measure will only provide improvement until which time his pathology progresses. We also discussed surgical options with the patient, which may be necessary at the L2-L3 level to address the central canal stenosis. After reviewing risks and benefits of all proposed treatment options, the patient chose to seek evaluation with Neurosurgery. 2. The patient will be referred to Neurosurgery of [facility]. We requested that the patient be seen as quickly as possible to discuss treatment for severe central canal stenosis of the lumbar spine and subsequent lumbar radiculopathy involving bilateral lower extremities. The patient will contact Dr. Saha's office at his earliest convenience to make that appointment. I did advise the patient if he needs assistance in moving forward with the evaluation to contact our clinic and we will discuss the possibility of having him see one of the nurse practitioners perform seeing the surgeons specifically. The patient is agreeable with plan. He was given a prescription for referral today. 3. No medication changes made at today's visit. The patient will continue current medical therapy as prior prescribed. 4. Plan to see the patient back in followup visit on an as needed basis. He is a candidate for a spinal cord stimulator, though the patient does understand that this will only provide improvement in symptoms for the period of time until which his pathology progresses. It is definitely an option, but he wants to discuss surgical options with the Neurosurgery team initially. We will see him back on an as needed basis. <ELECTRONICALLY SIGNED> By: Nabeel Lujan DO 06/01/21 [id number] Nabeel Lujan DO /nt
== END ==
LOC: PAIN
PROVIDERS: ATTEND Anesthesiology Pain Medicine
DX: M47.26 Other spondylosis with radiculopathy, lumbar region (principal); M47.27 Other spondylosis with radiculopathy, lumbosacral region; M48.061 Spinal stenosis, lumbar region without neurogenic claudication; G89.29 Other chronic pain; M51.16 Intervertebral disc disorders with radiculopathy, lumbar region; R20.2 Paresthesia of skin; Z88.8 Allergy status to other drugs, medicaments and biological substances